=== PATIENT | female | born 1990 | race Hispanic/Latino ===

== ENCOUNTER 2016-09-24 18:54 | Emergency (ER) | payer OTHER ==
[~2016-09-24] VITALS: Ht 157.5 cm; Wt 79.8 kg
[~2016-09-24 18:54] MED LIST: ENDOCET 5-3251 EACH PO; IBUPROFEN800 MG PO; PRENATAL TABLE1 EAC3 PO
[2016-09-24] MEDS ORDERED: UNABLE TO OBTAIN (19:52)
[2016-09-24] MEDS ORDERED: NAPROSYN500 MG PO (21:57)
[2016-09-24 22:23] VITALS: BP 113/60
== END 2016-09-24 22:24 | disposition home or self-care (01) ==
LOC: EME 18:54 → RME 18:54
DX: M70.72 Other bursitis of hip, left hip (principal)
CPT/HCPCS: 73502; 99281; 99283

== ENCOUNTER 2017-09-24 09:29 | Emergency (ER) | payer OTHER ==
[~2017-09-24] VITALS: Ht 157.5 cm; Wt 79.7 kg
[~2017-09-24 09:29] MED LIST changes: +NAPROSYN500 MG PO; +UNABLE TO OBTAIN
[2017-09-24 10:09] LABS: HEMATOCRIT 41.2 % (36.0-46.0); HEMOGLOBIN 13.8 G/DL (11.9-15.5); MCH 29.6 PG (29.0-34.0); MCHC 33.5 G/DL (30.0-36.0); MCV 88.2 FL (83-99); PLATELET COUNT 318 K/uL (156-360); RBC DIS.WIDTH-CV 12.5 % (11.8-14.6); RBC DIS.WIDTH-SD 40.7 % (39-53); RED BLOOD COUNT 4.67 M/uL (3.80-5.20); WHITE BLOOD COUNT 6.6 K/uL (4.1-10.2)
[2017-09-24 10:23] LABS: ALBUMIN 4.2 g/dL (3.2-4.8); CHLORIDE 108 mEq/L (99-109); SODIUM 141 mEq/L (136-147)
[2017-09-24 10:26] LABS: GLUCOSE 95 mg/dL (70-99); TOTAL PROTEIN 7.2 g/dL (6.4-8.3)
[2017-09-24 10:28] LABS: TOTAL BILIRUBIN 0.6 mg/dL (0.0-1.0)
[2017-09-24 10:29] LABS: ALKALINE PHOSPHATASE 75 IU/L (3-129); CREATININE 0.8 mg/dL (0.6-1.3); GFR ESTIMATE (CALCULATED) > 59 mL/min/
[2017-09-24 10:30] LABS: UREA NITROGEN (BUN) 11 mg/dL (9-23)
[2017-09-24 10:31] LABS: AST (GOT) 26 IU/L (2-34)
[2017-09-24 10:32] LABS: ALT (GPT) 37 IU/L (3-49)
[2017-09-24 10:39] LABS: QUANTITATIVE HCG < 4.0 MIU/ML
[2017-09-24 12:09] LABS: APPEARANCE SL.HAZY ((CLEAR)); BILIRUBIN NEGATIVE; BLOOD MODERATE; COLOR YELLOW ((YELLOW)); GLUCOSE (STRIP) NEGATIVE; KETONES NEGATIVE; LEUKOCYTES TRACE; NITRITE POSITIVE; PROTEIN (STRIP) NEGATIVE; SPECIFIC GRAVITY 1.015 (1.000-1.030); UROBILINOGEN 0.2 MG/DL (0.2-1.0)
[2017-09-24 12:19] LABS: BACTERIA 2+ /HPF; EPITHELIAL CELLS 1+ /HPF; MUCUS NONE SEEN /LPF; RED BLOOD CELLS 0-5 /HPF (0-5); UCUL ADDED? YES; WHITE BLOOD CELLS 0-5 /HPF (0-5)
[2017-09-24 13:07] LABS: SOURCE SWAB
[2017-09-24] MEDS ORDERED: KEFLEX500 MG PO (13:46)
[2017-09-24 14:08] VITALS: BP 125/47
== END 2017-09-24 14:11 | disposition home or self-care (01) ==
LOC: EME 09:29
PROVIDERS: Nurse Practitioner Family
DX: R10.2 Pelvic and perineal pain (principal); N93.9 Abnormal uterine and vaginal bleeding, unspecified; E28.2 Polycystic ovarian syndrome; N39.0 Urinary tract infection, site not specified; B96.20 Unspecified Escherichia coli [E. coli] as the cause of diseases classified elsewhere; Z87.891 Personal history of nicotine dependence; Z98.51 Tubal ligation status
CPT/HCPCS: 76856; 80053; 81003; 84702; 85027; 87077; 87086; 87186; 87210; 87491; 87591; 99281; 99284